=== PATIENT | female | born 1985 | race Caucasian/White ===

== ENCOUNTER 2016-12-23 10:41 | Inpatient (IN) | payer OTHER ==
[~2016-12-23] VITALS: Ht 152.4 cm; Wt 89.0 kg
[2017-01-02] MEDS ORDERED: VITAFOL-OB+DHA1 EACH PO (05:59)
[2017-01-02] MEDS ORDERED: TUMS200 MG PO (06:00)
[2017-01-02] MEDS ORDERED: PROBIOTIC1 EAC2 PO (06:01)
[2017-01-02] MEDS ORDERED: ZANTAC150 MG PO (06:01)
--- NOTE | 2017-01-02 08:34 | NUR ---
01/02/17 0834 Marleny Benavidez 0817 PATIENT ARRIVES TO ROOM 104 AWAKE, ALERT AND ORIENTED X3. RESP EVEN AND UNLABORED. SKIN PALE. C/O NAUSEA.
--- NOTE | 2017-01-04 09:04 | PR ---
[facility] [address] [facility] [place], [place] [address] Signed PP Progress Notes Datetime Report Generated by LEE: 01/04/2017 09:04 SUBJECTIVE: [id number] Pain: Within normal limits Nausea/Vomiting: Denies Flatus: Yes Vital Signs: [id number] Vital Signs: Reviewed; Within Normal Limits EXAM: [id number] Cardiovascular: Not Done Respiratory: Not Done Abdomen/Uterus: Abnormal Lochia: Normal Vulva/Perineum: Not Done Breasts: Not Done CVA Tenderness: Not Done Extremities: Normal Incision: Normal Progress: Normal Exam Comments: Abdomen with active BS. Fundus firm, NT @ U-1. IMPRESSION/PLAN/PROCEDURES: [id number] Impression: Normal progression Plan: Remove nabil; Discharge Other Plans: ambulate, shower, d/c richter Progress Notes: Doing well. She desires D/C. Signing Physician: Jennifer Morrison MD CC: *Electronically Signed* 01/04/17903 JENNIFER MORRISON MD PATIENT NAME: JENNIFER JOSEPH RAMANDEEP PROGRESS NOTE DATE OF : 83 PHYSICIAN: JENNIFER MORRISON MD RPT #: [id number] REPORT IS CONFIDENTIAL AND NOT TO BE RELEASED WITHOUT AUTHORIZATION
--- NOTE | 2017-01-12 20:38 | OR ---
[facility] [address] [place], [place] [address] Signed DATE OF PROCEDURE: 01/03/17 SURGEON: Jennifer Morrison M.D. COBOL ENGINEER: Sajan Rebollar D.O. PREOPERATIVE DIAGNOSIS Thirty-seven week . Prior classical section. POSTOPERATIVE DIAGNOSIS Thirty-seven week . Prior classical section, delivered. PROCEDURE Repeat section with low segment transverse uterine incision. ANESTHESIA: Spinal. ESTIMATED BLOOD LOSS: 500 mL. DRAINS: Coles catheter. INDICATIONS AND FINDINGS The patient is a 31-year-old female, 6, para 0-2-3-1, who was admitted a t 37 weeks for repeat section. Her has been complicated by multiple issues. She has a history of recurrent SABs. She has a history of a prior demise at 24 weeks. Her last was productive of a severely growth restricted infant delivered at 28 weeks, weighing 480 g with oligohydramnios and reversed diastolic flow, requiring a classical . She has been maintained on baby aspirin and Lovenox throughout this though no cause has ever been determined for her prior issues. The patient also has chronic anemia of unknown etiology. She has undergone a bone marrow biopsy, but the results are still unknown. She is not iron deficient or B12 or folate deficient. She also has a normal hemoglobin electrophoresis. She has been transfused several times during the because of her ongoing anemia. This baby has had ongoing antepartum testing, which has all been normal. Subsequently at surgery, she was delivered of a little boy via lower segment transverse uterine incision with Apgars of 9 and 9 and weight of 6 pounds 13 ounces. There was a nuchal cord x1, which was loose. The uterus, tubes, ovaries and placenta appeared normal. PROCEDURE IN DETAIL The patient was prepped and draped in the supine position. A Pfannenstiel skin incision was made and carried down through the fascia. The incision was extended laterally. The inferior and superior fascial flaps were then created. The muscles were sharply divided Electronically Signed By: JENNIFER MORRISON MD 01/12/17 2038 PATIENT NAME: JENNIFER JOSEPH OPERATIVE REPORT DATE OF : 83 PHYSICIAN: JENNIFER MORRISON MD REPORT #: [id number] REPORT IS CONFIDENTIAL AND NOT TO BE RELEASED WITHOUT AUTHORIZATION [address] [address] Signed and the peritoneum opened bluntly and the incision extended superiorly and inferiorly. The Arsen retractor was then placed. The uterine incision was then made at the upper aspect of the peritoneal reflection. The baby was delivered with the above findings and handed off to the pediatric staff in attendance. The placenta was removed manually and the uterus explored with a lap tape showing no remaining fragments. The edges of the incision were identified and the uterus closed in 2 layers using 0 Monocryl. The first layer was a running locking fashion. Second was a vertical imbricating stitch. The abdomen was then copiously irrigated and inspected and appeared hemostatic. The retractor was removed. The peritoneum identified. An ACell graft was laid over the lower segment to aid in healing. The peritoneum was then closed with a running suture of 3-0 Vicryl. The muscles brought together in the midline with interrupted sutures of 0 Vicryl. Bleeding points were controlled with cautery. ACell powder was sprinkled over the muscles to aid in healing. The fascia was then closed from each angle to the midline with a running suture of 0 Vicryl. The subcutaneous tissue was irrigated, inspected and bleeding points controlled with cautery. The subcu was closed with interrupted sutures of 3-0 Vicryl. The skin was closed with nabil. All sponge and needle counts were correct. She tolerated the procedure well and was taken to the recovery room in good condition. Jennifer Morrison MD PJW/Modl /[id number] cc: Sajan Rebollar DO Electronically Signed By: JENNIFER MORRISON MD 01/12/17 2038 PATIENT NAME: JENNIFER JOSEPH OPERATIVE REPORT DATE OF : 83 PHYSICIAN: JENNIFER MORRISON MD REPORT #: [id number] REPORT IS CONFIDENTIAL AND NOT TO BE RELEASED WITHOUT AUTHORIZATION
== END 2017-01-04 14:50 | disposition home or self-care (01) | DRG 766 ==
LOC: FBC 01-02 04:56 → MS 01-02 06:45 → FBC 01-02 06:45
PROVIDERS: ADMIT Obstetrics & Gynecology
PROC: 10D00Z1 Extraction of Products of Conception, Low, Open Approach (ICD-10-PCS; principal; 2017-01-03)
DX: O34.211 Maternal care for low transverse scar from previous cesarean delivery (principal); O99.02 Anemia complicating childbirth; Z3A.37 37 weeks gestation of pregnancy; Z37.0 Single live birth
CPT/HCPCS: 01961; 36415; 85027; 86850; 86900; 86901; 86920; C1763; J0690; J1100; J1644; J2274; J2300; J2370; J2405; J2550; J2590; J2710; J3010; J7040; J7120